=== PATIENT | male | born 1980 | race Caucasian/White ===

== ENCOUNTER 2020-03-05 22:06 | Emergency (ER) | payer OTHER ==
--- NOTE | 2020-03-05 23:24 | ER Document Report ---
ED Medical Screen (RME) - General Chief Complaint: Leg Injury Stated Complaint: RIGHT LEG VARICOSE VEIN INJURY Time Seen by Provider: 03/05/20 23:16 Primary Care Provider: PROVIDER,ER [Primary Care Provider] - Follow up as needed Mode of Arrival: Ambulatory Information source: Patient Notes: HPI; 39-year-old male presents to the emergency room with a puncture wound to his right heart. States about a week ago his dog's claw punctured varicose vein causing bleeding. Patient states he was able to stop the bleeding started again 2 days ago. Again he was able to stop the bleeding with pressure dressing. States tonight it bled through the dressing and is gotten progressively worse. Not currently on blood thinners. Tetanus is up-to-date. PE: Alert and oriented x3. Lungs: Clear to auscultation without rales, rhonchi, wheezes. Right heart with a puncture wound that is actively "squirting" blood when the dressing was removed. I have greeted and performed a rapid initial assessment of this patient. A comprehensive ED assessment and evaluation of the patient, analysis of test results and completion of the medical decision making process will be conducted by additional ED providers. I have specifically instructed the patient or family members with the patient to immediately return to any nursing staff should anything change in the patient's condition or with their chief complaint. TRAVEL OUTSIDE OF THE [place] IN LAST 30 DAYS: No - Related Data Allergies/Adverse Reactions: No Known Drug Allergies Allergy (Verified 03/05/20 23:16) Physical Exam - Vital signs Vitals: Temp Pulse Resp BP Pulse Ox 98.3 F 85 17 174/76 H 97 03/05/20 22:36 03/05/20 22:36 03/05/20 22:36 03/05/20 22:36 03/05/20 22:36 Course - Vital Signs Vital signs: Temp Pulse Resp BP Pulse Ox 98.3 F 85 17 174/76 H 97 03/05/20 22:36 03/05/20 22:36 03/05/20 22:36 03/05/20 22:36 03/05/20 22:36 Doctor's Discharge - Discharge Referrals: PROVIDER,ER [Primary Care Provider] - Follow up as needed
[2020-03-06] MEDS ORDERED: LIDOCAINE 2%/EPINEPHRINE INJ 20 ML VIAL INJ ONE (00:45)
[2020-03-06 01:21] VITALS: BP 160/79
--- NOTE | 2020-03-06 01:38 | ER Document Report ---
ED General - General Chief Complaint: Leg Injury Stated Complaint: RIGHT LEG VARICOSE VEIN INJURY Time Seen by Provider: 03/05/20 23:16 Primary Care Provider: PROVIDER,ER [ACTIVE STAFF] - Follow up as needed Mode of Arrival: Ambulatory Notes: Patient presents to the ER for evaluation of bleeding from a ruptured varicose vein on the right lower extremity that began earlier today. The patient states he was scratched by a dog approximately 1 week ago when the initial bleeding started. He states that he was in the shower this evening when he scratched his leg and the bleeding began again. Nursing notes reviewed and past medical, social, and family histories reviewed and validated. TRAVEL OUTSIDE OF THE [place] IN LAST 30 DAYS: No - Related Data Allergies/Adverse Reactions: No Known Drug Allergies Allergy (Verified 03/05/20 23:16) Past Medical History - General Information source: Patient - Social History Smoking Status: Never Smoker Chew tobacco use (# tins/day): No Frequency of alcohol use: None Drug Abuse: None Lives with: Family Family History: Reviewed & Not Pertinent Patient has suicidal ideation: No Patient has homicidal ideation: No - Past Medical History Cardiac Medical History: Reports: None Pulmonary Medical History: Reports: None Neurological Medical History: Reports: None Endocrine Medical History: Reports: None Renal/ Medical History: Reports: None Malignancy Medical History: Reports None GI Medical History: Reports: None Musculoskeletal Medical History: Reports None Skin Medical History: Reports None Psychiatric Medical History: Reports: None Traumatic Medical History: Reports: None Infectious Medical History: Reports: None Past Surgical History: Reports: None - Immunizations Immunizations up to date: Yes Hx Diphtheria, Pertussis, Tetanus Vaccination: Yes Review of Systems - Review of Systems Notes: Constitutional: Negative for fever. HENT: Negative for sore throat. Eyes: Negative for visual changes. Cardiovascular: Negative for chest pain. Respiratory: Negative for shortness of breath. Gastrointestinal: Negative for abdominal pain, vomiting or diarrhea. Genitourinary: Negative for dysuria. Musculoskeletal: Negative for back pain. Skin: Negative for rash. Positive for ruptured varicosity. Neurological: Negative for headaches, weakness or numbness. 10 point ROS negative except as marked above and in HPI. Physical Exam - Vital signs Vitals: Temp Pulse Resp BP Pulse Ox 98.3 F 85 17 174/76 H 97 03/05/20 22:36 03/05/20 22:36 03/05/20 22:36 03/05/20 22:36 03/05/20 22:36 - Notes Notes: CONSTITUTIONAL: Well appearing in no acute distress SKIN: There is an apparent ruptured varicosity on the lateral aspect of the right lower extremity just proximally to the ankle. Minor bleeding noted. EYES: Extraocular movements are grossly intact, clear conjunctiva HENT: Normocephalic, atraumatic, moist mucus membranes NECK: No obvious swelling, normal range of motion PULMONARY: Normal chest rise and fall, no respiratory distress or stridor CARDIOVASCULAR: Regular rate, distal extremities are warm and well perfused NEUROLOGIC: Normal speech, moves all extremities MUSCULOSKELETAL: No gross deformities, atraumatic PSYCHIATRIC: Normal mood and affect Course - Re-evaluation Re-evalutation: 03/06/20 01:41 Rechecked patient who has responded well to treatment in the ER. Discussed with patient: results, diagnosis, treatment plan, and need for follow-up. Return to the emergency department warnings were given. All questions and concerns were addressed. The plan is agreed with and understood. Patient is stable and ready for discharge. - Vital Signs Vital signs: Temp Pulse Resp BP Pulse Ox 98.4 F 78 14 160/79 H 95 03/06/20 01:17 03/06/20 01:17 03/06/20 01:17 03/06/20 01:17 03/06/20 01:17 - Laboratory Results Critical Laboratory Results Reviewed: No Critical Results - Radiology Results Critical Radiology Results Reviewed: No Critical Results Procedures - Additional Procedures Cautery of Varicosity Time performed: 01:00 Notes: 03/06/20 01:00 The varicose vein on the right lower extremity was cleaned with alcohol prep. It was then anesthetized lidocaine 2% with epi. The site was then gently cauterized. No bleeding noted following cautery. The site was then bandaged. The patient tolerated the procedure well. Discharge - Discharge Clinical Impression: Ruptured varicose vein Condition: Stable Disposition: HOME, SELF-CARE Instructions: Dressing Instructions for Open Wounds ([facility]) Referrals: PROVIDER,ER [ACTIVE STAFF] - Follow up as needed
== END 2020-03-06 01:41 | disposition home or self-care (01) ==
LOC: ER 22:06
DX: I83.891 Varicose veins of right lower extremity with other complications (principal)
CPT/HCPCS: 37799; 99283; J3490